=== PATIENT | male | born 1950 | race Hispanic/Latino ===

== ENCOUNTER 2016-06-23 12:17 | Emergency (ER) | payer BC ==
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
[2016-06-23 18:49] VITALS: BP 148/91
== END 2016-06-23 18:45 | disposition home or self-care (01) ==
LOC: ED 12:17
DX: M54.5 Low back pain (principal); M79.1 Myalgia; V49.49XA Driver injured in collision with other motor vehicles in traffic accident, initial encounter; Y93.9 Activity, unspecified; Y92.9 Unspecified place or not applicable; Y99.9 Unspecified external cause status
CPT/HCPCS: 72100; 99283